=== PATIENT | female | born 1980 | race Asian ===

== ENCOUNTER 2017-01-30 16:04 | Emergency (ER) | payer OTHER ==
[~2017-01-30] VITALS: Ht 162.6 cm; Wt 145.2 kg
== END 2017-01-30 18:15 | disposition home or self-care (01) ==
LOC: ED 16:04
PROC: 2W3QX1Z Immobilization of Right Lower Leg using Splint (ICD-10-PCS; principal; 2017-01-30)
DX: S93.491A Sprain of other ligament of right ankle, initial encounter (principal); S80.02XA Contusion of left knee, initial encounter; M17.12 Unilateral primary osteoarthritis, left knee; W10.9XXA Fall (on) (from) unspecified stairs and steps, initial encounter; Y92.098 Other place in other non-institutional residence as the place of occurrence of the external cause
CPT/HCPCS: 99283; J1885; L4350